=== PATIENT | male | born 1960 | race Caucasian/White ===

== ENCOUNTER 2019-09-24 07:14 | Emergency (ER) | payer OTHER, BC ==
[2019-09-24] MEDS ORDERED: fentaNYL 100 MCG/2 ML SDV ONE (07:21)
[2019-09-24] MEDS ORDERED: Sodium Chloride 0.9% 10 ML Syringe FLUSH PRN (07:22)
[2019-09-24] MEDS ORDERED: fentaNYL 100 MCG/2 ML SDV IVPUSH ONE (07:22)
[2019-09-24] MEDS ORDERED: Lactated Ringers 1,000 ML IV SCH (07:30)
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
[2019-09-24] MEDS ORDERED: Ketamine 500 MG/5 ML MDV IV ONE ×2 (07:58→08:15)
[2019-09-24] MEDS ORDERED: HYDROmorphone 1 MG/ML Syringe IVPUSH ONE (07:58)
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
== END 2019-09-24 08:25 ==
LOC: JP.ED 07:14
DX: S12.500A Unspecified displaced fracture of sixth cervical vertebra, initial encounter for closed fracture (principal); S12.600A Unspecified displaced fracture of seventh cervical vertebra, initial encounter for closed fracture; S00.03XA Contusion of scalp, initial encounter; Z87.891 Personal history of nicotine dependence; V59.9XXA Occupant (driver) (passenger) of pick-up truck or van injured in unspecified traffic accident, initial encounter
CPT/HCPCS: 36415; 70450; 71260; 72125; 72129; 74177; 80053; 80307; 81001; 84484; 85025; 86850; 86900; 86901; 96361; 96374; 96375; 99285; J1170; J3010; J7120

== ENCOUNTER 2020-02-06 12:51 | Emergency (ER) | payer BC ==
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
--- NOTE | 2020-02-06 15:41 | CRLCT ---
INDICATION: Abdominal banding pain constipation TECHNIQUE: CT abdomen and pelvis without contrast. COMPARISON: CT chest, abdomen and pelvis 09/24/2019 FINDINGS: The visualized portions of the lung bases are clear. Evaluation of the abdominal viscera is limited due to lack of IV contrast, however the liver, spleen, pancreas and adrenal glands are unremarkable. The gallbladder is nondistended and contains gallstones. The kidneys are negative for hydronephrosis or nephrolithiasis. There is a 0.5 cm stone within the mid to upper right kidney. No ureteral stone is visualized. The bladder is minimally distended and unremarkable. There are no dilated loops of small bowel to suggest obstruction.The appendix is normal.There is no intraperitoneal free air or fluid. Multiple innumerable tiny lucencies within the bilateral proximal femurs and pelvis. These appear new compared to prior exam from September 2019. IMPRESSION: 1. Nonobstructing right renal calculi measuring 0.5 cm. 2. Cholelithiasis. 3. Multiple new tiny lucencies within the bilateral proximal femurs and pelvis. 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 Dictated by Tamika George MD @ 02/06/2020 3:40:16 PM Please note that all CT scans at this facility use dose modulation, iterative reconstruction, and/or weight-based dosing when appropriate to reduce radiation dose to as low as reasonably achievable. Dictated by: Tamika George MD @ 02/06/2020 15:41:32 (Electronically Signed)
== END 2020-02-06 17:51 ==
LOC: JP.ED 12:51
DX: K59.00 Constipation, unspecified (principal); E78.00 Pure hypercholesterolemia, unspecified; Z79.01 Long term (current) use of anticoagulants; Z79.899 Other long term (current) drug therapy; Z73.5 Social role conflict, not elsewhere classified
CPT/HCPCS: 36415; 51702; 74176; 80053; 81001; 85025; 99285-25

== ENCOUNTER 2021-04-10 20:44 | Emergency (ER) | payer OTHER ==
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
== END 2021-04-10 22:22 | disposition home or self-care (01) ==
LOC: JP.ED 20:44
DX: S37.30XA Unspecified injury of urethra, initial encounter (principal); E78.00 Pure hypercholesterolemia, unspecified; Z79.899 Other long term (current) drug therapy; Z87.891 Personal history of nicotine dependence; X58.XXXA Exposure to other specified factors, initial encounter
CPT/HCPCS: 99283

== ENCOUNTER 2021-05-11 21:36 | Emergency (ER) | payer OTHER ==
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
== END 2021-05-11 23:26 | disposition home or self-care (01) ==
LOC: JP.ED 21:36
DX: S14.106A Unspecified injury at C6 level of cervical spinal cord, initial encounter (principal); G82.20 Paraplegia, unspecified; N39.0 Urinary tract infection, site not specified; N31.9 Neuromuscular dysfunction of bladder, unspecified; E78.00 Pure hypercholesterolemia, unspecified; Z79.899 Other long term (current) drug therapy; V59.9XXA Occupant (driver) (passenger) of pick-up truck or van injured in unspecified traffic accident, initial encounter; Y92.410 Unspecified street and highway as the place of occurrence of the external cause
CPT/HCPCS: 81001; 87086; 87088; 87186; 99283

== ENCOUNTER 2021-06-24 21:58 | Emergency (ER) | payer OTHER ==
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
[2021-06-24] MEDS ORDERED: Sodium Chloride 0.9% 10 ML Syringe FLUSH PRN (22:54)
[2021-06-24] MEDS ORDERED: Aluminum Hydroxide/Magnesium Hydroxide/Simethicone Susp 30 ML Cup PO STA (22:54)
--- NOTE | 2021-06-27 09:21 | CR ---
Abdomen 1V Flat CLINICAL HISTORY: Abdominal pain and constipation FINDINGS: There is is a limited study due to patient body habitus Small intestinal gas pattern is nonspecific. There is a large amount of stool in the left colon. There is a paucity of air or stool in the pelvic cavity. Pelvic mass or distended bladder is not excluded. There are numerous lytic lesions seen in both femurs. The liver is enlarged. IMPRESSION: Moderate retained stool Paucity of gas or stool in the pelvic cavity could represent a mass or distended urinary bladder. Moderate hepatomegaly Multiple lytic lesions in both femurs. This could represent metastatic disease or multiple myeloma
== END 2021-06-25 01:19 | disposition home or self-care (01) ==
LOC: JP.ED 21:58
DX: K59.01 Slow transit constipation (principal); R14.3 Flatulence; E78.00 Pure hypercholesterolemia, unspecified; Z79.899 Other long term (current) drug therapy
CPT/HCPCS: 36415; 74018; 80053; 81001; 83690; 85025; 99284; A9270

== ENCOUNTER 2021-07-16 12:34 | Inpatient (IN) | payer OTHER ==
[2021-07-16] MEDS ORDERED: Sodium Chloride 0.9% 10 ML Syringe FLUSH PRN ×2 (13:30→16:45)
[2021-07-16] MEDS ORDERED: Sodium Chloride 0.9% 1,000 ML IV SCH (13:30)
[2021-07-16] MEDS ORDERED: Bisacodyl 5 MG Tab PO ONE ×3 (16:45→22:03)
[2021-07-16] MEDS ORDERED: Polyethylene Glycol 3350 Powder 238 GM Bot PO ONE ×2 (17:00→19:42)
[2021-07-16] MEDS: cefTRIAXone 1 GM in Sodium Chloride 0.9% 50 ML IV SCH (17:25)
[2021-07-16] MEDS: Sodium Chloride 0.9% 1,000 ML IV SCH (17:28)
[2021-07-16 17:34] LABS: CORONAVIRUS COVID-19 NAA NEGATIVE (NEGATIVE)
[2021-07-16] MEDS: traMADol 50 MG Tab PO PRN (18:37)
[2021-07-16] MEDS: Acetaminophen 325 MG Tab PO PRN (20:14)
[2021-07-16] MEDS: Baclofen 10 MG Tab PO SCH (20:14)
[2021-07-16] MEDS: Pregabalin 75 MG Cap PO SCH (20:15)
[2021-07-16] MEDS: atorvaSTATin 20 MG Tab PO SCH (20:15)
[2021-07-16] MEDS: Melatonin 3 MG Tab PO PRN (20:15)
[2021-07-17] MEDS: Acetaminophen 325 MG Tab PO PRN ×3 (01:11→20:14)
[2021-07-17] MEDS: Ondansetron 4 MG/2 ML SDV IV PRN ×2 (01:19→20:35)
[2021-07-17] MEDS: Sodium Chloride 0.9% 1,000 ML IV SCH (01:26)
[2021-07-17] MEDS ORDERED: Baclofen 10 MG Tab PO SCH (08:00)
[2021-07-17] MEDS: Bisacodyl 10 MG Supp RECTAL SCH ×4 (08:57→20:13)
[2021-07-17] MEDS: Pantoprazole 40 MG Tab.CR PO SCH (08:58)
[2021-07-17] MEDS: Pregabalin 75 MG Cap PO SCH ×3 (08:58→20:13)
[2021-07-17] MEDS: Sennosides 8.6 MG Tab PO SCH (08:59)
[2021-07-17] MEDS: Cetirizine 10 MG Tab PO SCH (09:00)
[2021-07-17] MEDS ORDERED: Bisacodyl 5 MG Tab PO ONE ×2 (09:00→20:00)
[2021-07-17] MEDS: Baclofen 10 MG Tab PO SCH ×2 (15:13→20:13)
[2021-07-17] MEDS ORDERED: Polyethylene Glycol 3350 Powder 238 GM Bot PO ONE (17:00)
[2021-07-17] MEDS: cefTRIAXone 1 GM in Sodium Chloride 0.9% 50 ML IV SCH (17:13)
[2021-07-17] MEDS: traMADol 50 MG Tab PO PRN (19:37)
[2021-07-17] MEDS: atorvaSTATin 20 MG Tab PO SCH (20:13)
[2021-07-17] MEDS: Melatonin 3 MG Tab PO PRN (20:14)
[2021-07-17] MEDS ORDERED: HYDROmorphone 0.5 MG/0.5 ML Syringe IVPUSH PRN (21:39)
[2021-07-18] MEDS: Pantoprazole 40 MG Tab.CR PO SCH (07:40)
[2021-07-18] MEDS ORDERED: Bisacodyl 5 MG Tab PO ONE ×2 (09:00→18:00)
[2021-07-18] MEDS: Cetirizine 10 MG Tab PO SCH ×2 (09:14→09:17)
[2021-07-18] MEDS: Sennosides 8.6 MG Tab PO SCH (09:15)
[2021-07-18] MEDS: Baclofen 10 MG Tab PO SCH ×3 (09:15→21:43)
[2021-07-18] MEDS: Pregabalin 75 MG Cap PO SCH ×3 (09:23→21:46)
[2021-07-18] MEDS: traMADol 50 MG Tab PO PRN ×3 (09:30→23:04)
[2021-07-18] MEDS ORDERED: Polyethylene Glycol 3350 Powder 238 GM Bot PO ONE (15:00)
[2021-07-18] MEDS: Ondansetron 4 MG/2 ML SDV IV PRN (17:56)
[2021-07-18] MEDS: Cephalexin 250 MG Cap PO SCH (21:43)
[2021-07-18] MEDS: atorvaSTATin 20 MG Tab PO SCH (21:43)
[2021-07-19] MEDS: Acetaminophen 325 MG Tab PO PRN (03:31)
[2021-07-19] MEDS ORDERED: Propofol 200 MG/20 ML SDV ONE (07:11)
[2021-07-19] MEDS ORDERED: Midazolam 1 MG/ML 2 ML SDV ONE (07:12)
[2021-07-19] MEDS ORDERED: fentaNYL 100 MCG/2 ML SDV ONE (07:12)
[2021-07-19] MEDS ORDERED: Lactated Ringers 1,000 ML ONE (07:35)
[2021-07-19] MEDS: Baclofen 10 MG Tab PO SCH ×3 (09:24→21:46)
[2021-07-19] MEDS: Pregabalin 75 MG Cap PO SCH ×3 (09:26→21:47)
[2021-07-19] MEDS: Cetirizine 10 MG Tab PO SCH ×2 (09:27→09:30)
[2021-07-19] MEDS: Pantoprazole 40 MG Tab.CR PO SCH (09:27)
[2021-07-19] MEDS: Cephalexin 250 MG Cap PO SCH ×2 (09:28→21:46)
[2021-07-19] MEDS: Sennosides 8.6 MG Tab PO SCH (09:28)
[2021-07-19] MEDS: Potassium Chloride 20 MEQ, Lidocaine 1% 2 ML in Sodium Chloride 0.9% 100 ML IV SCH ×3 (11:30→15:51)
[2021-07-19] MEDS: Magnesium Sulfate/Water 2 GM in Premix Bag 1 BAG IV SCH ×3 (11:31→22:04)
[2021-07-19] MEDS: Potassium Chloride 20 MEQ Tab.ER PO SCH ×3 (14:36→21:46)
[2021-07-19] MEDS: traMADol 50 MG Tab PO PRN (19:02)
[2021-07-19] MEDS: Melatonin 3 MG Tab PO PRN (21:46)
[2021-07-19] MEDS: atorvaSTATin 20 MG Tab PO SCH (21:46)
[2021-07-20] MEDS: Magnesium Sulfate/Water 2 GM in Premix Bag 1 BAG IV SCH ×4 (05:21→23:24)
[2021-07-20] MEDS: Pregabalin 75 MG Cap PO SCH ×4 (07:39→21:31)
[2021-07-20] MEDS ORDERED: Glycopyrrolate 0.2 MG/ML 5 ML MDV ONE (07:43)
[2021-07-20] MEDS ORDERED: Neostigmine Methylsulfate 1 MG/ML 5 ML Syringe ONE (07:43)
[2021-07-20] MEDS ORDERED: Dexamethasone 4 MG/ML SDV ONE (07:43)
[2021-07-20] MEDS ORDERED: Succinylcholine 200 MG/10 ML MDV ONE (07:43)
[2021-07-20] MEDS ORDERED: fentaNYL 250 MCG/5 ML SDV ONE ×3 (07:43→10:36)
[2021-07-20] MEDS ORDERED: Rocuronium 50 MG/5 ML Vial ONE (07:43)
[2021-07-20] MEDS ORDERED: Ondansetron 4 MG/2 ML SDV ONE (07:43)
[2021-07-20] MEDS ORDERED: Propofol 200 MG/20 ML SDV ONE (07:43)
[2021-07-20] MEDS ORDERED: cefOXitin 2 GM in Sodium Chloride 0.9% 50 ML IV ONE (10:00)
[2021-07-20] MEDS ORDERED: Sodium Chloride 0.9% 10 ML ONE ×2 (10:43→11:46)
[2021-07-20] MEDS ORDERED: Meropenem 500 MG SDV ONE ×2 (10:43→11:46)
[2021-07-20] MEDS: Cephalexin 250 MG Cap PO SCH (11:14)
[2021-07-20] MEDS: Pantoprazole 40 MG Tab.CR PO SCH (11:14)
[2021-07-20] MEDS: Sennosides 8.6 MG Tab PO SCH (11:15)
[2021-07-20] MEDS: Baclofen 10 MG Tab PO SCH ×3 (11:15→21:27)
[2021-07-20] MEDS: Cetirizine 10 MG Tab PO SCH (11:15)
[2021-07-20] MEDS ORDERED: Lactated Ringers 1,000 ML ONE (11:46)
[2021-07-20] MEDS ORDERED: Scopolamine 1.5 MG Transdermal Patch TOP PRN (14:07)
[2021-07-20] MEDS: HYDROmorphone 1 MG/ML Syringe IV PRN ×3 (14:47→23:54)
[2021-07-20] MEDS: cefOXitin 2 GM in Sodium Chloride 0.9% 50 ML IV SCH ×2 (15:08→21:25)
[2021-07-20] MEDS: Pantoprazole 40 MG Vial IVPUSH SCH (15:08)
[2021-07-20] MEDS: Acetaminophen 500 MG Tab PO SCH ×2 (17:04→22:01)
[2021-07-20] MEDS: SCOPOLAMINE PATCH CHECK TOP SCH (17:47)
[2021-07-20] MEDS: Dextrose 5%-Lactated Ringers 1,000 ML IV SCH (19:02)
[2021-07-20] MEDS: atorvaSTATin 20 MG Tab PO SCH (21:28)
[2021-07-20] MEDS: Melatonin 3 MG Tab PO PRN (21:43)
[2021-07-20] MEDS: traMADol 50 MG Tab PO PRN (22:00)
[2021-07-20] MEDS ORDERED: Benzocaine/Cetylpyridinium/Menthol Lozenge MUCMEM PRN (23:33)
[2021-07-21] MEDS: Acetaminophen 500 MG Tab PO SCH ×4 (04:09→21:03)
[2021-07-21] MEDS: cefOXitin 2 GM in Sodium Chloride 0.9% 50 ML IV SCH ×4 (04:09→21:04)
[2021-07-21] MEDS: Magnesium Sulfate/Water 2 GM in Premix Bag 1 BAG IV SCH ×4 (04:10→22:22)
[2021-07-21] MEDS: traMADol 50 MG Tab PO PRN ×4 (04:15→18:43)
[2021-07-21] MEDS: Dextrose 5%-Lactated Ringers 1,000 ML IV SCH (04:15)
[2021-07-21] MEDS: HYDROmorphone 0.5 MG/0.5 ML Syringe IVPUSH PRN ×2 (07:42→22:24)
[2021-07-21] MEDS ORDERED: Dextrose 5%-Lactated Ringers 1,000 ML IV SCH (08:00)
[2021-07-21] MEDS: Bisacodyl 5 MG Tab PO SCH ×2 (08:45→21:03)
[2021-07-21] MEDS: Baclofen 10 MG Tab PO SCH ×3 (08:49→21:03)
[2021-07-21] MEDS: Cetirizine 10 MG Tab PO SCH (08:53)
[2021-07-21] MEDS: Pregabalin 75 MG Cap PO SCH ×3 (08:55→21:06)
[2021-07-21] MEDS: Sennosides 8.6 MG Tab PO SCH (08:57)
[2021-07-21] MEDS: SCOPOLAMINE PATCH CHECK TOP SCH (09:46)
[2021-07-21] MEDS: Bisacodyl 10 MG Supp RECTAL SCH ×2 (09:58→19:13)
[2021-07-21] MEDS: Pantoprazole 40 MG Vial IVPUSH SCH (16:13)
[2021-07-21] MEDS ORDERED: Nitroglycerin 2% Oint 1 GM UD Packet TOP ONE (20:34)
[2021-07-21] MEDS: atorvaSTATin 20 MG Tab PO SCH (21:03)
[2021-07-21] MEDS ORDERED: Nitroglycerin 2% Oint 1 GM UD Packet ONE (23:14)
[2021-07-21] MEDS: Nitroglycerin 2% Oint 1 GM UD Packet TOP PRN (23:29)
[2021-07-22] MEDS: traMADol 50 MG Tab PO PRN ×4 (00:56→22:43)
[2021-07-22] MEDS: cefOXitin 2 GM in Sodium Chloride 0.9% 50 ML IV SCH ×2 (03:18→10:19)
[2021-07-22] MEDS: Acetaminophen 500 MG Tab PO SCH ×4 (03:18→21:47)
[2021-07-22] MEDS: Magnesium Sulfate/Water 2 GM in Premix Bag 1 BAG IV SCH ×2 (04:29→11:25)
[2021-07-22] MEDS ORDERED: Bupivacaine 0.5% 50 ML MDV ONE (06:37)
[2021-07-22] MEDS ORDERED: Meropenem 500 MG SDV ONE (06:37)
[2021-07-22] MEDS ORDERED: Lidocaine 1% with EPINEPHrine 1:100,000 50 ML MDV ONE (06:37)
[2021-07-22] MEDS ORDERED: Propofol 200 MG/20 ML SDV ONE (07:36)
[2021-07-22] MEDS ORDERED: Nitroglycerin 2% Oint 1 GM UD Packet TOP ONE (08:06)
[2021-07-22] MEDS ORDERED: Ketorolac 30 MG/ML SDV ONE (08:21)
[2021-07-22] MEDS ORDERED: Furosemide 20 MG/2 ML VIAL IVPUSH ONE (08:32)
[2021-07-22] MEDS ORDERED: fentaNYL 100 MCG/2 ML SDV IV ONE (09:00)
[2021-07-22] MEDS ORDERED: Dextrose 5%-Lactated Ringers 1,000 ML IV SCH (10:00)
[2021-07-22] MEDS: Pregabalin 75 MG Cap PO SCH ×3 (10:22→20:37)
[2021-07-22] MEDS: BISACODYL 10 MG RECTAL SCH (10:23)
[2021-07-22] MEDS: SCOPOLAMINE PATCH CHECK TOP SCH (10:25)
[2021-07-22] MEDS: Sennosides 8.6 MG Tab PO SCH (10:26)
[2021-07-22] MEDS: Bisacodyl 5 MG Tab PO SCH ×2 (10:28→20:38)
[2021-07-22] MEDS: Cetirizine 10 MG Tab PO SCH (10:28)
[2021-07-22] MEDS: Baclofen 10 MG Tab PO SCH ×3 (10:28→20:39)
[2021-07-22] MEDS: Potassium Phos in 0.9 % NaCl 15 MMOL in Premix Bag 1 BAG IV SCH ×6 (13:49→19:55)
[2021-07-22] MEDS ORDERED: Furosemide 20 MG/2 ML VIAL IV ONE (14:00)
[2021-07-22] MEDS: Pantoprazole 40 MG Tab.CR PO SCH (15:07)
[2021-07-22] MEDS: Nitroglycerin 2% Oint 1 GM UD Packet TOP PRN (18:25)
[2021-07-22] MEDS: HYDROmorphone 1 MG/ML Syringe IV PRN ×2 (19:55→22:44)
[2021-07-22] MEDS ORDERED: LORazepam 2 MG/ML SDV IVPUSH ONE (20:20)
[2021-07-22] MEDS ORDERED: Nitroglycerin 2% Oint 1 GM UD Packet TOP PRN (20:35)
[2021-07-22] MEDS: atorvaSTATin 20 MG Tab PO SCH (20:39)
[2021-07-23] MEDS: HYDROmorphone 1 MG/ML Syringe IV PRN ×8 (00:45→22:42)
[2021-07-23] MEDS: traMADol 50 MG Tab PO PRN ×5 (02:49→20:37)
[2021-07-23] MEDS: Acetaminophen 500 MG Tab PO SCH ×4 (02:59→21:00)
[2021-07-23] MEDS: Pantoprazole 40 MG Tab.CR PO SCH (07:41)
[2021-07-23] MEDS: BISACODYL 10 MG RECTAL SCH ×2 (08:27→09:24)
[2021-07-23] MEDS ORDERED: Furosemide 20 MG/2 ML VIAL IV ONE (08:30)
[2021-07-23] MEDS: Bisacodyl 5 MG Tab PO SCH (09:24)
[2021-07-23] MEDS: Potassium Chloride 20 MEQ Tab.ER PO SCH ×3 (09:25→17:21)
[2021-07-23] MEDS: Cetirizine 10 MG Tab PO SCH (09:26)
[2021-07-23] MEDS: Baclofen 10 MG Tab PO SCH ×3 (09:26→20:38)
[2021-07-23] MEDS: Sennosides 8.6 MG Tab PO SCH (09:26)
[2021-07-23] MEDS: Pregabalin 75 MG Cap PO SCH ×3 (09:29→20:39)
[2021-07-23] MEDS ORDERED: Furosemide 20 MG/2 ML VIAL IVPUSH ONE (16:00)
[2021-07-23] MEDS: atorvaSTATin 20 MG Tab PO SCH (20:38)
[2021-07-23] MEDS: Phenylephrine 10% Ophth Soln 5 ML Bot ONE (23:00)
[2021-07-24] MEDS: Meropenem 1 GM in Sodium Chloride 0.9% 100 ML IV SCH ×2 (00:04→08:24)
[2021-07-24] MEDS: traMADol 50 MG Tab PO PRN ×5 (00:47→18:16)
[2021-07-24] MEDS: Acetaminophen 500 MG Tab PO SCH ×4 (03:06→21:01)
[2021-07-24] MEDS: Pantoprazole 40 MG Tab.CR PO SCH (07:26)
[2021-07-24] MEDS ORDERED: PHENYLEPHRINE 0.5% NASBOTH PRN (08:05)
[2021-07-24] MEDS: Phenylephrine 10% Ophth Soln 5 ML Bot ONE (08:11)
[2021-07-24] MEDS: Ibuprofen 600 MG Tab PO PRN (08:14)
[2021-07-24] MEDS: BISACODYL 10 MG RECTAL SCH (08:17)
[2021-07-24] MEDS: Baclofen 10 MG Tab PO SCH ×3 (08:17→21:00)
[2021-07-24] MEDS: Sennosides 8.6 MG Tab PO SCH (08:19)
[2021-07-24] MEDS: Cetirizine 10 MG Tab PO SCH (08:20)
[2021-07-24] MEDS: Pregabalin 75 MG Cap PO SCH ×3 (08:21→21:00)
[2021-07-24] MEDS ORDERED: Linezolid 600 MG in Premix Bag 1 BAG IV SCH (09:00)
[2021-07-24] MEDS ORDERED: Clindamycin Phosphate 900 MG in Sodium Chloride 0.9% 100 ML IV SCH (10:00)
[2021-07-24] MEDS ORDERED: Vancomycin 125 MG Cap PO ONE (12:45)
[2021-07-24] MEDS: Vancomycin 125 MG Cap PO SCH ×3 (13:14→21:02)
[2021-07-24] MEDS: Ondansetron 4 MG/2 ML SDV IV PRN (16:45)
[2021-07-24] MEDS: Metoclopramide 10 MG/2 ML SDV IVPUSH SCH (18:48)
[2021-07-24] MEDS: HYDROmorphone 0.5 MG/0.5 ML Syringe IVPUSH PRN ×3 (18:51→23:21)
[2021-07-24] MEDS: atorvaSTATin 20 MG Tab PO SCH (21:00)
[2021-07-25] MEDS: Metoclopramide 10 MG/2 ML SDV IVPUSH SCH ×4 (01:58→19:42)
[2021-07-25] MEDS: HYDROmorphone 0.5 MG/0.5 ML Syringe IVPUSH PRN ×2 (02:38→05:16)
[2021-07-25] MEDS: Ondansetron 4 MG/2 ML SDV IV PRN (02:38)
[2021-07-25] MEDS: Ibuprofen 600 MG Tab PO PRN (02:45)
[2021-07-25] MEDS: Acetaminophen 500 MG Tab PO SCH ×4 (05:02→21:00)
[2021-07-25] MEDS: Vancomycin 125 MG Cap PO SCH ×4 (05:02→21:01)
[2021-07-25] MEDS: Dextrose 5%-Lactated Ringers 1,000 ML IV SCH ×2 (06:30→19:18)
[2021-07-25] MEDS: Pantoprazole 40 MG Tab.CR PO SCH (07:24)
[2021-07-25] MEDS ORDERED: Sodium Chloride 0.9% 10 ML Syringe FLUSH PRN (07:38)
[2021-07-25] MEDS ORDERED: Iopamidol 612 MG/ML 150 ML Bottle IV SCH (07:45)
[2021-07-25] MEDS ORDERED: Magnesium Sulfate/Water 2 GM in Premix Bag 1 BAG IV SCH (10:00)
[2021-07-25] MEDS: Sennosides 8.6 MG Tab PO SCH (10:15)
[2021-07-25] MEDS: Cetirizine 10 MG Tab PO SCH (10:15)
[2021-07-25] MEDS: Baclofen 10 MG Tab PO SCH ×3 (10:16→20:56)
[2021-07-25] MEDS: BISACODYL 10 MG RECTAL SCH (10:17)
[2021-07-25] MEDS: Pregabalin 75 MG Cap PO SCH ×3 (11:43→20:57)
[2021-07-25] MEDS: atorvaSTATin 20 MG Tab PO SCH (20:57)
[2021-07-25] MEDS: traMADol 50 MG Tab PO PRN (21:33)
[2021-07-26] MEDS: Metoclopramide 10 MG/2 ML SDV IVPUSH SCH ×3 (01:13→08:19)
[2021-07-26] MEDS: Acetaminophen 500 MG Tab PO SCH ×4 (04:19→21:07)
[2021-07-26] MEDS: Cetirizine 10 MG Tab PO SCH ×2 (05:14→08:11)
[2021-07-26] MEDS: Dextrose 5%-Lactated Ringers 1,000 ML IV SCH (06:04)
[2021-07-26] MEDS: Vancomycin 125 MG Cap PO SCH ×4 (06:04→21:08)
[2021-07-26] MEDS: Pantoprazole 40 MG Tab.CR PO SCH (08:19)
[2021-07-26] MEDS: Sennosides 8.6 MG Tab PO SCH (08:21)
[2021-07-26] MEDS: Baclofen 10 MG Tab PO SCH ×3 (08:22→21:01)
[2021-07-26] MEDS: Pregabalin 75 MG Cap PO SCH ×3 (08:22→21:07)
[2021-07-26] MEDS: BISACODYL 10 MG RECTAL SCH ×2 (10:41→12:37)
[2021-07-26] MEDS: Potassium Phos in 0.9 % NaCl 15 MMOL in Premix Bag 1 BAG IV SCH ×8 (10:41→17:39)
[2021-07-26] MEDS ORDERED: Metoclopramide 10 MG/2 ML SDV IVPUSH PRN (12:06)
[2021-07-26] MEDS: atorvaSTATin 20 MG Tab PO SCH (21:07)
[2021-07-26] MEDS: traMADol 50 MG Tab PO PRN (21:08)
[2021-07-27] MEDS: Melatonin 3 MG Tab PO PRN ×2 (00:34→23:32)
[2021-07-27] MEDS: Acetaminophen 500 MG Tab PO SCH ×4 (05:02→22:05)
[2021-07-27] MEDS: Vancomycin 125 MG Cap PO SCH ×4 (05:02→22:05)
[2021-07-27] MEDS: Pantoprazole 40 MG Tab.CR PO SCH (07:53)
[2021-07-27] MEDS: Potassium Chloride 20 MEQ Tab.ER PO SCH ×2 (08:53→22:00)
[2021-07-27] MEDS: Sennosides 8.6 MG Tab PO SCH ×2 (08:53→22:03)
[2021-07-27] MEDS: Baclofen 10 MG Tab PO SCH ×3 (08:53→22:00)
[2021-07-27] MEDS: Cetirizine 10 MG Tab PO SCH (08:53)
[2021-07-27] MEDS: Pregabalin 75 MG Cap PO SCH ×3 (08:54→22:07)
[2021-07-27] MEDS ORDERED: Furosemide 20 MG/2 ML VIAL IVPUSH ONE (09:00)
[2021-07-27] MEDS: BISACODYL 10 MG RECTAL SCH (12:10)
[2021-07-27] MEDS: traMADol 50 MG Tab PO PRN ×2 (18:18→23:32)
[2021-07-27] MEDS: HYDROmorphone 0.5 MG/0.5 ML Syringe IVPUSH PRN ×3 (18:29→23:47)
[2021-07-27] MEDS: Ondansetron 4 MG/2 ML SDV IV PRN (18:36)
[2021-07-27] MEDS: atorvaSTATin 20 MG Tab PO SCH (21:59)
[2021-07-28] MEDS: HYDROmorphone 0.5 MG/0.5 ML Syringe IVPUSH PRN (03:20)
[2021-07-28] MEDS: Acetaminophen 500 MG Tab PO SCH ×2 (04:35→09:31)
[2021-07-28] MEDS: Vancomycin 125 MG Cap PO SCH ×2 (05:30→09:32)
[2021-07-28] MEDS: traMADol 50 MG Tab PO PRN ×2 (05:38→09:47)
[2021-07-28] MEDS: Pregabalin 75 MG Cap PO SCH (09:26)
[2021-07-28] MEDS: Pantoprazole 40 MG Tab.CR PO SCH (09:27)
[2021-07-28] MEDS: Baclofen 10 MG Tab PO SCH (09:27)
[2021-07-28] MEDS: BISACODYL 10 MG RECTAL SCH (09:28)
[2021-07-28] MEDS: Sennosides 8.6 MG Tab PO SCH (09:28)
[2021-07-28] MEDS: Cetirizine 10 MG Tab PO SCH (09:29)
[2021-07-29 08:13] LABS: IMMUNOGLOBULIN A, QN, SERUM 246 mg/dL (90-386); IMMUNOGLOBULIN G, QN, SERUM 968 mg/dL (603-1613); IMMUNOGLOBULIN M, QN, SERUM 79 mg/dL (20-172)
[2021-07-31 19:11] LABS: A/G RATIO 0.9 (0.7-1.7); ALBUMIN 2.4 g/dL (2.9-4.4); ALPHA-1-GLOBULIN 0.4 g/dL (0.0-0.4); ALPHA-2-GLOBULIN 0.8 g/dL (0.4-1.0); BETA GLOBULIN 0.9 g/dL (0.7-1.3); GAMMA GLOBULIN 0.9 g/dL (0.4-1.8); IMMUNOGLOBULIN A, QN, SERUM 254 mg/dL (90-386); IMMUNOGLOBULIN G, QN, SERUM 987 mg/dL (603-1613); IMMUNOGLOBULIN M, QN, SERUM 80 mg/dL (20-172); M-SPIKE Not Observed g/dL (Not Observed); PROTEIN, TOTAL, SERUM 5.4 g/dL (6.0-8.5)
== END 2021-07-28 11:40 | disposition home health service (06) | DRG 330 ==
LOC: JP.ED 12:34 → JP.MS 15:59
PROVIDERS: ADMIT Hospitalist; ATTEND Hospitalist
PROC: 0DP Gastrointestinal System, Removal (ICD-10-PCS; 2021-07-19)
PROC: 0DBN8ZX Excision of Sigmoid Colon, Via Natural or Artificial Opening Endoscopic, Diagnostic (ICD-10-PCS; 2021-07-19)
PROC: 0JB80ZZ Excision of Abdomen Subcutaneous Tissue and Fascia, Open Approach (ICD-10-PCS; principal; 2021-07-20)
PROC: 0DTN0ZZ Resection of Sigmoid Colon, Open Approach (ICD-10-PCS; principal; 2021-07-20)
PROC: 0DTP0ZZ Resection of Rectum, Open Approach (ICD-10-PCS; principal; 2021-07-20)
PROC: 0D1N0ZP Bypass Sigmoid Colon to Rectum, Open Approach (ICD-10-PCS; principal; 2021-07-20)
PROC: 0WQF0ZZ Repair Abdominal Wall, Open Approach (ICD-10-PCS; 2021-07-22)
DX: K62.5 Hemorrhage of anus and rectum (principal); Z68.41 Body mass index [BMI] 40.0-44.9, adult; N39.0 Urinary tract infection, site not specified; E78.00 Pure hypercholesterolemia, unspecified; A04.72 Enterocolitis due to Clostridium difficile, not specified as recurrent; G82.20 Paraplegia, unspecified; N31.9 Neuromuscular dysfunction of bladder, unspecified; K59.01 Slow transit constipation; E66.01 Morbid (severe) obesity due to excess calories; M06.9 Rheumatoid arthritis, unspecified; G47.30 Sleep apnea, unspecified; Z20.822 Contact with and (suspected) exposure to COVID-19; E78.5 Hyperlipidemia, unspecified; K64.8 Other hemorrhoids; K63.89 Other specified diseases of intestine; Z79.899 Other long term (current) drug therapy; Z86.711 Personal history of pulmonary embolism; Z79.01 Long term (current) use of anticoagulants; Z93.6 Other artificial openings of urinary tract status; M89.50 Osteolysis, unspecified site
CPT/HCPCS: 0241U; 36415; 51701; 51702; 71045; 71045-26; 74177; 74177-26; 80048; 80053; 81001; 82378; 82784; 83615; 83735; 83880; 83883; 84100; 85018; 85025; 85027; 86850; 86900; 86901; 86920; 86922; 87040; 87086; 87088; 87186; 87493; 88304; 88305; 88307; 94762; 99223; 99232; 99233; 99284; 99285; A9270-GY; C9113; J0171; J0330; J0694; J0696; J1100; J1170; J1885; J1940; J2020; J2185; J2250; J2405; J2704; J2710; J2765; J2795; J3010; J3475; J3480; J3490; J7030; J7040; J7120; J7121

== ENCOUNTER 2021-08-12 10:23 | Emergency (ER) | payer OTHER ==
[2021-08-12 13:43] LABS: CORONAVIRUS COVID-19 NAA POSITIVE (NEGATIVE)
[2021-08-12] MEDS ORDERED: cefTRIAXone 1 GM Vial IM ONE (15:04)
[2021-08-12] MEDS ORDERED: Ondansetron 4 MG Tab.DIS PO ONE (15:47)
== END 2021-08-12 16:45 | disposition home or self-care (01) ==
LOC: JP.ED 10:23
DX: S31.109A Unspecified open wound of abdominal wall, unspecified quadrant without penetration into peritoneal cavity, initial encounter (principal); R53.83 Other fatigue; U07.1 COVID-19; J18.9 Pneumonia, unspecified organism; E78.00 Pure hypercholesterolemia, unspecified; Z88.5 Allergy status to narcotic agent; Z88.8 Allergy status to other drugs, medicaments and biological substances
CPT/HCPCS: 0241U; 36415; 71045; 80048; 80076; 83735; 84100; 85025; 86140; 96372; 99283; 99285; J0696; Q0162

== ENCOUNTER 2021-08-26 14:32 | Emergency (ER) | payer OTHER ==
[2021-08-26] MEDS ORDERED: cefTRIAXone 1 GM, Lidocaine 1% 4.2 ML IM ONE ×2 (15:31)
[2021-08-26] MEDS ORDERED: Potassium Chloride 20 MEQ Tab.ER PO ONE (16:34)
== END 2021-08-26 17:09 | disposition home or self-care (01) ==
LOC: JP.ED 14:32
DX: N39.0 Urinary tract infection, site not specified (principal); E87.6 Hypokalemia; E78.00 Pure hypercholesterolemia, unspecified; Z88.5 Allergy status to narcotic agent; Z88.8 Allergy status to other drugs, medicaments and biological substances; Z79.899 Other long term (current) drug therapy
CPT/HCPCS: 36415; 71045; 80048; 81001; 83605; 84484; 85025; 87086; 87088; 87186; 96372; 99284; A9270; J0696; 99283

== ENCOUNTER 2021-09-26 11:58 | Emergency (ER) | payer OTHER | END 2021-09-26 14:06 | disposition home or self-care (01) | LOC: JP.ED 11:58 | DX: N39.0 Urinary tract infection, site not specified (principal); E78.00 Pure hypercholesterolemia, unspecified; Z88.5 Allergy status to narcotic agent; Z88.8 Allergy status to other drugs, medicaments and biological substances; Z79.899 Other long term (current) drug therapy | CPT/HCPCS: 81001; 87086; 87088; 87186; 99283 ==

== ENCOUNTER 2021-11-08 11:59 | Emergency (ER) | payer OTHER ==
[2021-11-08] MEDS ORDERED: cefTRIAXone 1 GM Vial IM ONE (13:57)
[2021-11-08] MEDS ORDERED: Lidocaine 1% 5 ML VIAL ONE (14:03)
== END 2021-11-08 14:56 | disposition home or self-care (01) ==
LOC: JP.ED 11:59
DX: S82.851A Displaced trimalleolar fracture of right lower leg, initial encounter for closed fracture (principal); N39.0 Urinary tract infection, site not specified; K59.09 Other constipation; Z88.5 Allergy status to narcotic agent; Z88.8 Allergy status to other drugs, medicaments and biological substances; Z79.899 Other long term (current) drug therapy; W05.0XXA Fall from non-moving wheelchair, initial encounter
CPT/HCPCS: 36415; 73610; 80053; 81001; 85025; 87086; 87088; 87186; 96372; 99283; J0696

== ENCOUNTER 2022-02-09 10:43 | Emergency (ER) | payer OTHER ==
[2022-02-09 12:48] LABS: ESTIMATED GFR 117 mL/min (>60)
== END 2022-02-09 13:35 | disposition home or self-care (01) ==
LOC: JP.ED 10:43
DX: M62.838 Other muscle spasm (principal); M79.2 Neuralgia and neuritis, unspecified; Z88.5 Allergy status to narcotic agent; Z88.6 Allergy status to analgesic agent; Z79.899 Other long term (current) drug therapy; Z86.16 Personal history of COVID-19; Z20.822 Contact with and (suspected) exposure to COVID-19
CPT/HCPCS: 36415; 80053; 81001; 83735; 85025; 99284; U0002

== ENCOUNTER 2022-03-05 10:16 | Emergency (ER) | payer OTHER ==
[2022-03-05] MEDS ORDERED: cefTRIAXone 1 GM, Lidocaine 1% 2.1 ML IM ONE ×2 (12:39)
== END 2022-03-05 13:13 | disposition home or self-care (01) ==
LOC: JP.ED 10:16
DX: N30.01 Acute cystitis with hematuria (principal); E78.00 Pure hypercholesterolemia, unspecified; Z88.5 Allergy status to narcotic agent; Z88.6 Allergy status to analgesic agent; Z79.899 Other long term (current) drug therapy; Z86.16 Personal history of COVID-19
CPT/HCPCS: 81001; 87086; 96372; 99283; J0696

== ENCOUNTER 2022-04-19 12:33 | Emergency (ER) | payer OTHER | END 2022-04-19 14:07 | disposition home or self-care (01) | LOC: JP.ED 12:33 | DX: N39.0 Urinary tract infection, site not specified (principal); E78.00 Pure hypercholesterolemia, unspecified; Z86.16 Personal history of COVID-19; Z88.5 Allergy status to narcotic agent; Z88.8 Allergy status to other drugs, medicaments and biological substances; Z79.899 Other long term (current) drug therapy | CPT/HCPCS: 81001; 99283 ==

== ENCOUNTER 2022-04-30 10:24 | Emergency (ER) | payer OTHER ==
[2022-04-30] MEDS ORDERED: cefTRIAXone 1 GM, Lidocaine 1% 2.1 ML IM ONE ×2 (11:56)
== END 2022-04-30 12:27 | disposition home or self-care (01) ==
LOC: JP.ED 10:24
DX: N31.9 Neuromuscular dysfunction of bladder, unspecified (principal); R31.9 Hematuria, unspecified; R82.71 Bacteriuria; R82.81 Pyuria; E78.00 Pure hypercholesterolemia, unspecified; E66.9 Obesity, unspecified; Z68.39 Body mass index [BMI] 39.0-39.9, adult; Z88.5 Allergy status to narcotic agent; Z88.6 Allergy status to analgesic agent; Z79.899 Other long term (current) drug therapy; Z86.16 Personal history of COVID-19
CPT/HCPCS: 81001; 87086; 96372; 99284; J0696

== ENCOUNTER 2022-09-03 10:27 | Emergency (ER) | payer OTHER ==
[2022-09-03] MEDS ORDERED: cefTRIAXone 1 GM, Lidocaine 1% 2.1 ML IM ONE ×2 (11:25)
== END 2022-09-03 12:15 | disposition home or self-care (01) ==
LOC: JP.ED 10:27
DX: N39.0 Urinary tract infection, site not specified (principal); N31.9 Neuromuscular dysfunction of bladder, unspecified; T14.8XXA Other injury of unspecified body region, initial encounter; G82.20 Paraplegia, unspecified; R82.71 Bacteriuria; E78.00 Pure hypercholesterolemia, unspecified; E66.9 Obesity, unspecified; Z88.5 Allergy status to narcotic agent; Z88.8 Allergy status to other drugs, medicaments and biological substances; Z79.899 Other long term (current) drug therapy; Z86.16 Personal history of COVID-19; Z68.41 Body mass index [BMI] 40.0-44.9, adult
CPT/HCPCS: 81001; 87086; 87088; 87186; 96372; 99283; J0696

== ENCOUNTER 2022-10-01 07:13 | Emergency (ER) | payer OTHER ==
[2022-10-01] MEDS ORDERED: Sodium Chloride 0.9% 1,000 ML IV ONE (07:34)
[2022-10-01] MEDS ORDERED: Sodium Chloride 0.9% 10 ML Syringe FLUSH PRN (07:34)
[2022-10-01] MEDS ORDERED: Flumazenil 0.1 MG/ML 5 ML MDV IVPUSH PRN ×2 (07:34→07:35)
[2022-10-01 07:59] LABS: ESTIMATED GFR 111 mL/min (>60)
[2022-10-01 09:57] LABS: CORONAVIRUS COVID-19 NAA NEGATIVE (NEGATIVE)
[2022-10-02] MEDS ORDERED: Acetaminophen/HYDROcodone 325-10 MG Tab PO ONE (11:12)
[2022-10-02] MEDS ORDERED: Baclofen 10 MG Tab PO ONE ×2 (11:12→21:00)
[2022-10-02] MEDS ORDERED: Acetaminophen/HYDROcodone 325-10 MG Tab ONE (18:30)
[2022-10-02] MEDS: Acetaminophen/HYDROcodone 325-10 MG Tab PO PRN (18:33)
[2022-10-02] MEDS ORDERED: Pregabalin 75 MG Cap PO ONE (21:00)
[2022-10-03] MEDS ORDERED: Baclofen 10 MG Tab PO ONE ×2 (07:27→07:40)
[2022-10-03] MEDS ORDERED: Pregabalin 75 MG Cap PO ONE (07:27)
[2022-10-03] MEDS: Acetaminophen/HYDROcodone 325-10 MG Tab PO PRN (08:04)
== END 2022-10-03 09:09 | disposition other institution (70) ==
LOC: JP.ED 07:13
DX: T42.4X2A Poisoning by benzodiazepines, intentional self-harm, initial encounter (principal); M06.9 Rheumatoid arthritis, unspecified; E66.01 Morbid (severe) obesity due to excess calories; G82.20 Paraplegia, unspecified; G89.21 Chronic pain due to trauma; G62.9 Polyneuropathy, unspecified; E78.00 Pure hypercholesterolemia, unspecified; Z86.711 Personal history of pulmonary embolism; Z68.41 Body mass index [BMI] 40.0-44.9, adult; Z86.16 Personal history of COVID-19; Z88.5 Allergy status to narcotic agent; Z79.899 Other long term (current) drug therapy; Z20.822 Contact with and (suspected) exposure to COVID-19
CPT/HCPCS: 0241U; 36415; 51702; 80053; 80143; 80179; 80305; 80307; 82803; 83605; 85025; 85610; 96361; 96374; 99285; A9270; J3490; J7030

== ENCOUNTER 2022-11-20 18:41 | Emergency (ER) | payer OTHER ==
[2022-11-20 19:28] LABS: APPEARANCE,URINE SLIGHTLY CLOUDY (CLEAR); BILIRUBIN,URINE NEGATIVE (NEGATIVE); COLOR,URINE YELLOW (YELLOW); GLUCOSE,URINE NEGATIVE (NEGATIVE); KETONES,URINE NEGATIVE (NEGATIVE); LEUKOCYTE ESTERASE,URINE SMALL (NEGATIVE); NITRITE,URINE NEGATIVE (NEGATIVE); OCCULT BLOOD,URINE LARGE (NEGATIVE); PROTEIN,URINE NEGATIVE (NEGATIVE); UROBILINOGEN,URINE 0.2 EU/dL (0.2-1.0)
[2022-11-20 19:33] LABS: AMORPHOUS SEDIMENT,URINE NOT SEEN; BACTERIA,URINE MANY; EPITHELIAL CELLS,URINE RARE; MUCUS,URINE NOT SEEN; RBC,URINE >100 (0-5); WBC,URINE SEMI-PACKED (0-5)
== END 2022-11-20 20:15 | disposition home or self-care (01) ==
LOC: JP.ED 18:41
DX: N39.0 Urinary tract infection, site not specified (principal); E78.00 Pure hypercholesterolemia, unspecified; E66.9 Obesity, unspecified; Z68.38 Body mass index [BMI] 38.0-38.9, adult; Z86.16 Personal history of COVID-19; Z88.5 Allergy status to narcotic agent; Z79.899 Other long term (current) drug therapy
CPT/HCPCS: 81001; 87086; 87088; 87186; 99284

== ENCOUNTER 2023-03-16 12:01 | Emergency (ER) | payer OTHER ==
[2023-03-16 14:07] LABS: APPEARANCE,URINE SLIGHTLY CLOUDY (CLEAR); BILIRUBIN,URINE NEGATIVE (NEGATIVE); COLOR,URINE YELLOW (YELLOW); GLUCOSE,URINE NEGATIVE (NEGATIVE); KETONES,URINE NEGATIVE (NEGATIVE); LEUKOCYTE ESTERASE,URINE SMALL (NEGATIVE); NITRITE,URINE NEGATIVE (NEGATIVE); OCCULT BLOOD,URINE TRACE-INTACT (NEGATIVE); PROTEIN,URINE NEGATIVE (NEGATIVE); UROBILINOGEN,URINE 0.2 EU/dL (0.2-1.0)
[2023-03-16 14:18] LABS: EPITHELIAL CELLS,URINE RARE; RBC,URINE 0-5 (0-5); WBC,URINE 20-30 (0-5)
[2023-03-16 14:19] LABS: AMORPHOUS SEDIMENT,URINE NOT SEEN; BACTERIA,URINE MANY; MUCUS,URINE FEW
[2023-03-16] MEDS ORDERED: cefTRIAXone 1 GM Vial IM ONE (14:55)
[2023-03-16] MEDS ORDERED: cefTRIAXone 1 GM, Lidocaine 1% 2.1 ML IM ONE ×2 (15:00)
[2023-03-16 15:08] LABS: BASOPHILS ABSOLUTE AUTO 0.03 K/uL (0.00-0.10); BASOPHILS PERCENT AUTO 0.3 % (0.1-1.3); HEMATOCRIT 38.6 % (38.4-49.7); HEMOGLOBIN 12.3 g/dL (12.9-16.9); IMMATURE GRAN ABSOLUTE AUTO 0.03 K/uL (0.00-0.23); IMMATURE GRAN PERCENT AUTO 0.3 % (0.0-0.7); LYMPHOCYTES ABSOLUTE AUTO 2.14 K/uL (0.8-3.3); LYMPHOCYTES PERCENT AUTO 21.8 % (11.4-47.7); MEAN CORPUSCULAR HEMOGLOBIN 27.4 pg (31.6-35.5); MEAN CORPUSCULAR HGB CONC 31.9 g/dL (31.6-35.5); MONOCYTES ABSOLUTE AUTO 0.78 K/uL (0.20-0.90); NEUTROPHILS ABSOLUTE AUTO 6.63 K/uL (1.0-7.6); NEUTROPHILS PERCENT AUTO 67.6 % (40.0-78.1); PLATELET COUNT,PLT 256 K/uL (130-375); RED BLOOD CELL COUNT 4.49 M/uL (4.14-5.76); WHITE BLOOD CELL COUNT,WBC 9.8 K/uL (3.2-11.0)
[2023-03-16 15:26] LABS: ANION GAP 7.3 mmol/L (5.0-14.0); C-REACTIVE PROTEIN 1.94 mg/dL (0.0-0.3); CALCIUM 8.8 mg/dL (8.5-10.1); CREATININE 0.6 mg/dL (0.8-1.3); EST CRCL DRUG DOSING (CG) 152.22 mL/min; POTASSIUM,K 4.2 mmol/L (3.6-5.2)
== END 2023-03-16 15:57 | disposition home or self-care (01) ==
LOC: JP.ED 12:01
DX: N39.0 Urinary tract infection, site not specified (principal); E78.00 Pure hypercholesterolemia, unspecified; Z79.899 Other long term (current) drug therapy; Z86.16 Personal history of COVID-19; Z88.5 Allergy status to narcotic agent; Z87.891 Personal history of nicotine dependence
CPT/HCPCS: 36415; 80048; 81001; 85025; 86140; 87086; 87088; 87186; 96372; 99283; J0696